=== PATIENT | female | born 1960 | race Caucasian/White ===

== ENCOUNTER 2017-03-07 08:48 | Emergency (ER) | payer OTHER ==
[2017-03-07 08:59] VITALS: BP 141/86; PULSE 76; RESP 18; TEMP 98.6; O2SAT 98
--- NOTE | 2017-03-07 09:03 | UCPHY ---
H & P Patient Type: Established Chief Complaint Nursing Narrative: ST since Saturday, cough today; green sputum Time Seen by Provider: 03/07/17 08:55 HPI/ROS: CHIEF COMPLAINT: Sore throat, cough, runny nose HISTORY OF PRESENT ILLNESS: Patient is a 56-year-old female who comes to the Urgent Care complaining of a sore throat for 3 days and today a cough productive of green sputum. She has also had a runny nose. She denies fevers. She denies shortness of breath. She does have a history of asthma and bronchitis. She has not had any headache or neck pain. No chest pain. REVIEW OF SYSTEMS: Constitutional: See HPI EENTM: See HPI Respiratory: denies: cough, shortness of breath Cardiac: denies: chest pain, irregular heart rate, lightheadedness, palpitations Gastrointestinal/Abdominal: denies: abdominal pain, diarrhea, nausea, vomiting, blood streaked stools Genitourinary: denies: dysuria, frequency, hematuria, pain Musculoskeletal: denies: joint pain, muscle pain Skin: denies: lesions, rash, jaundice, bruising Neurological: denies: headache, numbness, paresthesia, tingling, dizziness, weakness Hematologic/Lymphatic: denies: blood clots, easy bleeding, easy bruising Immunologic/allergic: denies: HIV/AIDS, transplant EXAM: GENERAL: Well-appearing, well-nourished and in no acute distress. HEAD: Atraumatic, normocephalic. EYES: Pupils equal round and reactive to light, extraocular movements intact, sclera anicteric, conjunctiva are normal. ENT: Tympanic membranes with effusion, nares with rhinorrhea, throat with mild erythema. NECK: Normal range of motion, supple without lymphadenopathy or JVD. LUNGS: Breath sounds clear to auscultation bilaterally and equal. No wheezes rales or rhonchi. HEART: Regular rate and rhythm without murmurs, rubs or gallops. ABDOMEN: Soft, nontender, normoactive bowel sounds. No guarding, no rebound. No masses appreciated. BACK: No CVA tenderness, no spinal tenderness, step-offs or deformities EXTREMITIES: Normal range of motion, no pitting or edema. No clubbing or cyanosis. NEUROLOGICAL: Cranial nerves II through XII grossly intact. Normal speech, normal gait. 5/5 strength, normal movement in all extremities, normal sensation PSYCH: Normal mood, normal affect. SKIN: Warm, dry, normal turgor, no visible rashes or lesions. Source: Patient Exam Limitations: No limitations - Personal History Current Tetanus/Diphtheria Vaccine: Yes Tetanus Vaccine Date: 2015 - Medical/Surgical History Hx Asthma: Yes Hx Chronic Respiratory Disease: No Hx Diabetes: No Hx Cardiac Disease: No Hx Renal Disease: No Hx Cirrhosis: No Hx Alcoholism: No Hx HIV/AIDS: No Hx Splenectomy or Spleen Trauma: No Other PMH: kidney reconstruction surgery, c section, left ganglion removal, L ankle surgery, cholecystectomy, nerve pain-RSD, vertigo - Family History Significant Family History: No pertinent family hx - Social History Smoking Status: Never smoked Alcohol Use: None Drug Use: None Constitutional: Initial Vital Signs Temperature (C) 37 C 03/07/17 08:52 Heart Rate 76 03/07/17 08:52 Respiratory Rate 18 03/07/17 08:52 Blood Pressure 141/86 H 03/07/17 08:52 O2 Sat (%) 98 03/07/17 08:52 O2 Delivery Mode Room Air Allergies/Adverse Reactions: tramadol Allergy (Severe, Verified 03/07/17 08:59) Other-Enter Comments hydrocodone bitartrate [From Vicodin] Allergy (Intermediate, Verified 03/07/17 08:59) Other-Enter Comments Home Medications: Medication Instructions Recorded GABAPENTIN 04/28/16 Topamax 04/28/16 AZITHROMYCIN [Z-PACK] 250 mg PO DAILY #6 tab 03/07/17 Valium 03/07/17 Medical Decision Making ED Course/Re-evaluation: The patient is here requesting antibiotics. she appears to have pharyngitis and early bronchitis. Will start her on azithromycin. She declines testing. If she is not improving over the next 48 hours she will return. We also discussed indications for returning to the emergency department. Differential Diagnosis: Partial list of the Differential diagnosis considered include but were not limited to; pharyngitis, bronchitis, sinusitis, upper respiratory tract infection and although unlikely based on the history and physical exam, I also considered pneumonia, sepsis, meningitis, PE. I discussed these differential diagnoses and the plan with the patient as well as the usual and expected course. The patient understands that the diagnosis is provisional and that in medicine we are not always correct and that further workup is often warranted. Usual and customary warnings were given. All of the patient's questions were answered. The patient was instructed to return to the emergency department should the symptoms at all worsen or return, otherwise to followup with the physician as we discussed. Departure - Departure Disposition: Home, Routine, Self-Care Clinical Impression: Bronchitis Condition: Fair Instructions: Acute Bronchitis (ED) Referrals: Rafa Joseph [employer] [Primary Care Provider] - As per Instructions Prescriptions: AZITHROMYCIN [Z-PACK] 250 mg PO DAILY #6 tab - PQRS PQRS Measurement: Not applicable
== END 2017-03-07 09:17 | disposition home or self-care (01) ==
LOC: CED 08:48
DX: J40 Bronchitis, not specified as acute or chronic (principal)
CPT/HCPCS: 99214-PO; G0463-PO